=== PATIENT | female | born 1980 | race African-American/Black ===

== ENCOUNTER 2022-12-21 23:52 | Emergency (ER) | payer OTHER ==
[~2022-12-21] VITALS: Ht 165.1 cm; Wt 70.3 kg
== END 2022-12-22 06:21 | disposition home or self-care (01) ==
LOC: ER 23:52
DX: F41.1 Generalized anxiety disorder (principal); Z88.0 Allergy status to penicillin; Z88.6 Allergy status to analgesic agent